=== PATIENT | female | born 1990 | race African-American/Black ===

== ENCOUNTER 2021-03-19 15:56 | Emergency (ER) | payer MEDICAID ==
[~2021-03-19] VITALS: Ht 167.6 cm; Wt 97.0 kg
[2021-03-19 16:19] VITALS: BP 125/79
== END 2021-03-20 00:49 | disposition left against medical advice (07) ==
LOC: ER 15:56
DX: R68.89 Other general symptoms and signs (principal); Z53.21 Procedure and treatment not carried out due to patient leaving prior to being seen by health care provider

== ENCOUNTER 2021-08-02 01:56 | Emergency (ER) | payer MEDICAID ==
[~2021-08-02] VITALS: Ht 165.1 cm; Wt 94.5 kg
[2021-08-02 02:14] VITALS: BP 125/78
[2021-08-02] MEDS ORDERED: CEPH500C2 MT (03:12)
== END 2021-08-02 03:34 | disposition home or self-care (01) ==
LOC: ER 01:56
DX: L03.114 Cellulitis of left upper limb (principal)
CPT/HCPCS: 99283